=== PATIENT | female | born 1995 | race Caucasian/White ===

== ENCOUNTER 2025-04-13 11:55 | Outpatient (CLI) | payer OTHER, SELFPAY ==
--- NOTE | 2025-04-13 12:15 | CRLHL7_ITS ---
For Patients: As a result of the Century Cures Act, medical imaging exams and procedure reports are released immediately into your electronic medical record. You may view this report before your referring provider. If you have questions, please contact your health care provider. OB ULTRASOUND LESS THAN 14 WEEKS CLINICAL HISTORY: Dating and viability. COMPARISON: None. TECHNIQUE: Grayscale and color Doppler ultrasound of the uterus and ovaries from a transabdominal and transvaginal approach. Transvaginal ultrasound of the pelvis was performed to better evaluate the genitourinary organs such as the ovaries and/or endometrium. FINDINGS: Surgery: None. Imaging: TV. LMP: 02/11/2025. RAVEN by LMP: 11/18/2025. GA: 8 weeks 5 days. CRL: 2.3 cm, 9 weeks 0 days. RAVEN 11/16/2025. FHR: 176 bpm. GEST SAC: 3.9 cm, appears WNL. YOLK SAC: 4.5 mm, appears WNL. RIGHT OV: 2.6 x 1.8 x 1.5 cm. WNL. LEFT OV: 3.3 x 2.1 x 2.8 cm. WNL. CL. IMPRESSION: 1. Single living intrauterine measures 9 weeks 0 days with sonographic due date 11/16/2025. 2. Simple left ovarian cyst measures 2.1 x 1.6 x 2.3 cm. Abdifatah Durbin M.D. Diagnostic Radiologist [email or web address] Transcribed: 3:41 pm DW/Dictated by: Abdifatah Durbin MD @ 04/13/2025 2:20:00 PM (Electronically Signed)
[2025-04-13 14:13] LABS: Hematocrit* 37.5 % (33.0-51.0); Hemoglobin* 12.9 gm/dL (12.0-16.0); Immature Granulocytes Abs Auto 0.02 K/uL (0.00-0.30); Immature Granulocytes Pct Auto 0.2 %; Lymphocytes Absolute Auto 1.50 K/uL (0.90-2.90); Mean Corpuscular HGB Conc 34 gm/dL (32-36); Mean Corpuscular Hemoglobin 31 pg (26-34); Mean Corpuscular Volume 91 fL (80-100); RDW Coefficient of Variation % 12.2 % (11.5-15.5); Red Blood Count* 4.13 m/uL (4.00-5.20); White Blood Count* 8.89 K/uL (4.50-11.00)
[2025-04-13 14:19] LABS: Slide Review Reflex No
[2025-04-13 17:18] LABS: Alanine Aminotransferase* 19 U/L (4-35); Aspartate Amino Transferase* 22 U/L (12-35); Blood Urea Nitrogen* 9 mg/dL (5-24); Creatinine* 0.6 mg/dL (0.5-1.5); Estimated Glomerular Filt Rate 124 ml/min
[2025-04-13 17:51] LABS: TSH With Reflex to FT4* 10.100 uIU/mL (0.270-4.200)
[2025-04-13 17:52] LABS: Hepatitis B Surface Antigen* Negative (Negative)
[2025-04-13 18:01] LABS: HIV 1/2/P24 Combo Screen* Negative (Negative)
[2025-04-13 18:02] LABS: Protein Creatinine Ratio Urine 0.10 (0-0.19)
[2025-04-13 18:10] LABS: Hepatitis C Virus Antibody* Negative (Negative)
[2025-04-13 18:25] LABS: Hepatitis B Surface Antibody* Positive (Negative)
[2025-04-13 20:10] LABS: Free T4 Free Thyroxine* 0.49 ng/dL (0.70-1.85)
[2025-04-15 12:51] LABS: Hepatitis B Core Antibodies Negative (Negative)
[2025-04-15 15:45] LABS: Hemoglobin - Other 0.0 % (0.0-0.0); Hemoglobin Cap ELP Not Performed
== END 2025-04-13 11:56 | disposition home or self-care (01) ==
LOC: US 11:57
PROVIDERS: Visit Provider Physician Assistant
DX: O34.81 Maternal care for other abnormalities of pelvic organs, first trimester (principal); N83.292 Other ovarian cyst, left side; Z3A.09 9 weeks gestation of pregnancy
CPT/HCPCS: 36415; 76817; 82565; 82570; 83020; 83021; 83036; 84156; 84439; 84443; 84450; 84460; 84520; 85025; 85660; 86703; 86704; 86706; 86762; 86780; 86787; 86803; 86850; 86900; 86901; 87086; 87340

== ENCOUNTER 2025-04-13 13:17 | Outpatient (CLI) | payer OTHER, SELFPAY ==
[2025-04-13 21:58] LABS: Chlamydia DNA Amplified* NOT DETECTED (No Detected); GC DNA Amplified* NOT DETECTED (No Detected)
== END 2025-04-13 13:18 | disposition home or self-care (01) ==
PROVIDERS: Visit Provider Physician Assistant
DX: Z34.91 Encounter for supervision of normal pregnancy, unspecified, first trimester (principal); Z3A.08 8 weeks gestation of pregnancy
CPT/HCPCS: 87491; 87591